=== PATIENT | female | born 1950 | race Caucasian/White ===

== ENCOUNTER → 2016-11-24 | Outpatient (CLI) | payer MEDICARE, BC ==
[~2016-11-24] MED LIST: CENTRUM SILVER1 EAC4 PO; GLUCOPHAGE XR500 M1 PO; LIPITOR10 M1 PO; NAPROSYN375 MG PO; PRILOSEC20 MG PO; TRICOR 160 MG160 MG PO
== END | disposition disaster alternative care site (69) ==
LOC: GBCOE 12:06
DX: Z12.31 Encounter for screening mammogram for malignant neoplasm of breast (principal); Z91.89 Other specified personal risk factors, not elsewhere classified
CPT/HCPCS: G0202